=== PATIENT | female | born 1995 | race Caucasian/White ===

== ENCOUNTER 2021-06-23 20:32 | Emergency (ER) | payer OTHER ==
[~2021-06-23] VITALS: Ht 167.6 cm; Wt 59.0 kg
[2021-06-23 20:45] VITALS: BP 114/67
[2021-06-23] MEDS ORDERED: PENICILLIN G BENZATHINE L-A 1.2 MU/2 ML SYR IM ONE (21:00)
[2021-06-23] MEDS ORDERED: ALUMINUM HYD/MAG/SIMETHICONE 30 ML UDC PO ONE (21:00)
[2021-06-23] MEDS ORDERED: ACETAMINOPHEN EXTRA STRENGTH 500 MG TAB PO ONE (21:00)
[2021-06-23 21:24] LABS: BASOPHILS # (AUTO) 0.1 K/uL (0.00-0.22); BASOPHILS % (AUTO) 1.2 % (0.0-2.0); EOSINOPHILS # (AUTO) 0.3 K/uL (0-0.4); EOSINOPHILS % (AUTO) 3.4 % (0.0-4.0); HEMATOCRIT 40.1 % (36-48); HEMOGLOBIN 13.5 g/dL (12.0-16.0); LYMPHOCYTES # (AUTO) 3.1 K/uL (2.5-16.5); LYMPHOCYTES % (AUTO) 37.3 % (20.5-51.1); MEAN CORPUSCULAR HEMOGLOBIN 31 pg (27-31); MEAN CORPUSCULAR HGB CONC 34 g/dL (33-37); MEAN CORPUSCULAR VOLUME 92.9 fL (80-94); MONOCYTES # (AUTO) 0.7 K/uL (0.8-1.0); MONOCYTES % (AUTO) 7.9 % (1.7-9.3); NEUTROPHILS # (AUTO) 4.2 K/uL (1.8-7.7); NEUTROPHILS % (AUTO) 50.2 % (42.2-75.2); PLATELET COUNT (AUTO) 308 K/uL (140-450); RED BLOOD CELL COUNT(AUTO) 4.31 MIL/uL (4.20-5.40); RED CELL DISTRIBUTION WIDTH 13.1 % (11.6-13.7); WHITE BLOOD COUNT (AUTO) 8.4 K/uL (4.8-10.8)
[2021-06-23 21:35] LABS: ALBUMIN 4.4 g/dL (3.4-5.0); ANION GAP 13.9 (8-16); CARBON DIOXIDE 28.1 mmol/L (21-32); TOTAL BILIRUBIN 0.4 mg/dL (0.0-1.0)
--- NOTE | 2021-06-23 21:45 | NUR ---
26/F BIB SELF C/O EPIGASTRIC ABDOMINAL PAIN, NAUSEA, DIARRHEA SINCE THIS MORNING. PT DESCRIBES PAIN SHARP AND BURNING WITH A RATE OF 10/10. PT STATES SHE HAD JUST BEEN DIAGNOSED WITH SYPHILLIS THIS WEEK. SKIN IS PINK/WARM/DRY; AAOX4 WITH EVEN AND STEADY GAIT; HR EVEN AND REGULAR; PT DENIES ANY FEVER, CP, SOB, OR COUGH AT THIS TIME; VSS; PATIENT POSITIONED FOR COMFORT; HOB ELEVATED; BEDRAILS UP X2; BED DOWN. ERMD MADE AWARE OF PT STATUS. DENIES PMH NKDA
--- NOTE | 2021-06-23 21:45 | NUR ---
TO BED AMBULATORY
[2021-06-23] MEDS ORDERED: OMEP20EC11 PO (22:04)
[2021-06-23] MEDS ORDERED: ONDA-24 PO (22:04)
[2021-06-23 22:10] VITALS: BP 114/67
--- NOTE | 2021-06-23 22:10 | NUR ---
Patient discharged with v/s stable. Written and verbal after care instructions given and explained. Patient alert, oriented and verbalized understanding of instructions. Ambulatory with steady gait. All questions addressed prior to discharge. ID band removed. Patient advised to follow up with PMD. Rx of PRISOLEC AND ZOFRAN given. Patient educated on indication of medication including possible reaction and side effects. Opportunity to ask questions provided and answered.
== END 2021-06-23 22:10 | disposition home or self-care (01) ==
LOC: MED 20:32
DX: R10.13 Epigastric pain (principal); R11.0 Nausea; R19.7 Diarrhea, unspecified
CPT/HCPCS: 36415; 80053; 81002; 81025; 83690; 85025; 86592; 96372; 99283; J0561; 87491

== ENCOUNTER 2021-07-04 16:40 | Emergency (ER) | payer OTHER ==
[~2021-07-04] VITALS: Ht 167.6 cm; Wt 65.3 kg
[~2021-07-04 16:40] MED LIST: OMEP20EC11 PO; ONDA-24 PO
[2021-07-04 16:43] VITALS: BP 115/71
[2021-07-04] MEDS: PENICILLIN G BENZATHINE L-A 1.2 MU/2 ML SYR IM ONE (17:50)
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
--- NOTE | 2021-07-04 18:15 | NUR ---
Patient discharged with v/s stable. Written and verbal after care instructions given and explained. Patient verbalized understanding. Ambulatory with steady gait. All questions addressed prior to discharge. Advised to follow up with PMD.
== END 2021-07-04 18:15 | disposition home or self-care (01) ==
LOC: MED 16:40
DX: A53.9 Syphilis, unspecified (principal); Z79.899 Other long term (current) drug therapy
CPT/HCPCS: 96372; 99283; J0561

== ENCOUNTER 2021-07-11 09:28 | Emergency (ER) | payer OTHER ==
[~2021-07-11] VITALS: Ht 167.6 cm; Wt 65.3 kg
[2021-07-11 09:33] VITALS: BP 106/74
[2021-07-11] MEDS ORDERED: PENICILLIN G BENZATHINE L-A 1.2 MU/2 ML SYR IM ONE (09:56)
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
[2021-07-11] MEDS: PENICILLIN G BENZATHINE L-A 1.2 MU/2 ML SYR IM ONE (10:04)
[2021-07-11 10:27] VITALS: BP 106/74
== END 2021-07-11 10:28 | disposition home or self-care (01) ==
LOC: MED 09:28
DX: A53.9 Syphilis, unspecified (principal); Z79.899 Other long term (current) drug therapy
CPT/HCPCS: 96372; 99283; J0561

== ENCOUNTER 2021-07-18 15:09 | Emergency (ER) | payer OTHER ==
[~2021-07-18 15:09] MED LIST changes: +ONDA-188 PO; -ONDA-24 PO
[2021-07-18] MEDS ORDERED: PENICILLIN G BENZATHINE L-A 1.2 MU/2 ML SYR IM ONE (15:55)
== END 2021-07-18 16:12 | disposition home or self-care (01) ==
LOC: MED 15:09
DX: A53.9 Syphilis, unspecified (principal)
CPT/HCPCS: 96372; 99283; J0561; 99281